=== PATIENT | female | born 1975 | race Caucasian/White ===

== ENCOUNTER 2016-10-01 07:54 | Emergency (ER) | payer OTHER ==
[~2016-10-01] VITALS: Ht 149.9 cm; Wt 72.6 kg
[~2016-10-01 07:54] MED LIST: ALBUTEROL0.09 MG/A1 INH; AMOXIL 875 MG875 MG PO; AMOXIL500 MG PO; CIPRO250 M1 PO; EXCEDRIN MIGRAI1 TAB; FLOMAX(MONOGRA0.4 MG PO; FLUOXETINE HCL10 M2 PO; IMITREX20 MG NAS; MOBIC15 M1 PO; MOTRIN 600 MG600 MG PO; PERCOCET 325 MG1 TA2 PO; PREDNISONE 20MG20 MG PO; PRILOSEC OTC20 M1 PO; PRILOSEC40 MG PO; TESSALON PERLE100 MG PO; TORADOL10 MG PO; TRAMADOL HCL50 MG PO; VITAMIN D50000 IU PO; XANAX0.5 MG PO; XODOL PO; ZOFRAN ODT4 M1 SL; ZOFRAN4 M1 PO
[2016-10-01 07:58] VITALS: BP 177/110
--- NOTE | 2016-10-01 08:07 | ED GI/GU/ABDOMINAL COMPLAINT ---
History of Present Illness General Chief Complaint: Abdominal Pain/Flank Pain Stated Complaint: R LOWER ABD PAIN Source: patient Exam Limitations: no limitations Vital Signs & Intake/Output Vital Signs & Intake/Output Vital Signs Date Time Temp Pulse Resp B/P Pulse O2 O2 Flow FiO2 Ox Delivery Rate 10/01 0758 97.2 96 20 177/110 96 Room Air Allergies Coded Allergies: nut - unspecified (Severe, ANAPHYLAXIS 04/12/16) bacitracin (Intermediate, RASH 04/12/16) hydrocodone (From Vicodin) (Intermediate, HIVES 04/12/16) meperidine (Intermediate, RASH 04/12/16) morphine (Intermediate, RASH 04/12/16) venom-honey bee (bee venom (honey bee)) (Intermediate, HIVES, SWELLING 04/12/16) MDX - Fruits (FRUITS) (PRIMARILY FRUIT PITS; MOUTH AND THROAT ITCH 10/17/15) Reconcile Medications Alprazolam (Xanax) 0.5 MG TAB 1 TAB PO AT BEDTIME SLEEP (Reported) Fluoxetine HCl 10 MG CAPSULE 1 CAP PO DAILY PMS (Reported) Pantoprazole Sodium (Protonix) 40 MG TABLET.DR 1 TAB PO DAILY GERD Sucralfate (Carafate) 1 GRAM/10 ML ORAL.SUSP 10 ML PO 4 TIMES/DAY GASTRITIS 1 hour before food and bedtime Triage Note: PT TO ED C/O RIGHT ABD PAIN. STATES WAS HERE 2 MONTHS AGO AND WAS TOLD IT WAS INDIGESTION. PAIN WORSE LAST NIGHT. HAS NOT HAD F/U CARE SINCE. C/O NAUSEA, DIARRHEA. DENIES VOMITING. STATES HER ABD IS DISTENDED. DENIES S/S. Triage Nurses Notes Reviewed? yes ? N Is pt currently ? No Duration: waxing and waning, FEW MONTHS Timing: recent history Quality/Severity: moderate Location: left upper quadrant, right upper quadrant Radiation: no radiation Activities at Onset: eating, sometimes without eating Prior Abdominal Problems: similar symptoms No Modifying Factors: none Associated Symptoms: abdominal pain, nausea/vomiting HPI: 40 year old female who presents with RUQ pain, constant, dull that started 2 months ago. Seen at that time, dx with reflux. For the last 2 months pain has been constant. Pain is worse after meals, 7/10, up to 10/10, now associated with diarrhea. Diarrhea is 3-4 times per day, dark this morning. LMP is 09/04, not currently sexually active. Last night patient had steak, fried empanadas, nachos. Past History Travel History Traveled to [place] past 21 day No Medical History Any Pertinent Medical History? 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 No Review of Systems Review of Systems Constitutional: Denies: chills, fever. EENTM: Reports: no symptoms. Respiratory: Reports: no symptoms. Cardiovascular: Denies: chest pain. GI: Reports: abdominal pain, diarrhea, nausea, vomiting. Genitourinary: Reports: no symptoms. Musculoskeletal: Reports: no symptoms. Skin: Reports: no symptoms. Neurological/Psychological: Reports: no symptoms. Hematologic/Endocrine: Denies: bruising, bleeding, polyuria, polydipsia. Immunologic/Allergic: Denies: splenectomy. All Other Systems: Reviewed and Negative Physical Exam Physical Exam General Appearance: well developed/nourished, alert, awake, anxious, mild distress Head: atraumatic, normal appearance Eyes: Bilateral: normal appearance, PERRL, EOMI. Ears, Nose, Throat, Mouth: hearing grossly normal, moist mucous membrane Neck: normal inspection, supple, full range of motion Respiratory: normal breath sounds, chest non-tender, no respiratory distress Cardiovascular: edema Peripheral Pulses: 2+ radial (R), 2+ radial (L) Gastrointestinal: soft, tenderness (RUQ, LUQ) Extremities: normal range of motion Neurologic/Psych: no motor/sensory deficits, awake, alert, oriented x 3 Skin: intact, normal color, warm/dry Core Measures ACS in differential dx? No Severe Sepsis Present: No Septic Shock Present: No Progress Differential Diagnosis: cholecystitis, SYMPTOMATIC CHOLELITHIASIS, PANCREATITIS, IBS, IBD, PANCREATITIS, GERD/PUD Plan of Care: Orders Procedure Date/time Status LACTIC ACID 10/01 1130 Active C-REACTIVE PROTEIN 10/01 0844 Complete LIPASE 01/16 0830 Complete LACTIC ACID 10/01 829 Complete COMPREHENSIVE METABOLIC PANEL 10/01 829 Complete CBC WITHOUT DIFFERENTIAL 10/01 829 Complete URINE 10/01 756 Complete URINALYSIS 10/01 756 Complete Laboratory Tests 10/01/16 0845: C-Reactive Prot, Quant Cancelled 10/01/16 0844: Anion Gap 10, Estimated GFR > 60, BUN/Creatinine Ratio 13.8, Glucose 95, Lactic Acid 1.1, Calcium 8.7, Total Bilirubin 0.3, AST 20, ALT 23, Alkaline Phosphatase 68, C-Reactive Prot, Quant < 0.5, Total Protein 7.3, Albumin 4.2, Globulin 3.1, Albumin/Globulin Ratio 1.4, Lipase 114, CBC w Diff NO MAN DIFF REQ, RBC 4.81, MCV 86.7, MCH 29.6, RDW 12.2, MPV 8.1, Gran % 63.4, Lymphocytes % 24.6, Monocytes % 6.9, Eosinophils % 4.4, Basophils % 0.7, Absolute Granulocytes 3.8, Absolute Lymphocytes 1.5, Absolute Monocytes 0.4, Absolute Eosinophils 0.3, Absolute Basophils 0, PUBS MCHC 34.2 10/01/16 0838: Urine Color YEL, Urine Clarity CLEAR, Urine pH 6.0, Ur Specific [place] >= 1.030 , Urine Protein NEG, Urine Ketones NEG, Urine Nitrite NEG, Urine Bilirubin NEG, Urine Urobilinogen 0.2, Ur Leukocyte Esterase NEG, Ur Microscopic SEDIMENT EXAMINED, Urine RBC 10-15 H, Urine WBC RARE, Ur Epithelial Cells MANY H, Urine Mucus RARE, Urine Hemoglobin MOD H, Urine Glucose NEG, Urine Test NEGATIVE 9:37 AM U/S PENIDNG. IV TORADOL GIVEN FOR PAIN. (NIDIA HANSNE,SHRUTHI) Diagnostic Imaging: Viewed by Me: Ultrasound. Discussed w/RAD: Ultrasound. Initial ED EKG: none Comments: PATIENT: EDDY RENTERIA PRESENT AGE: 40 PATIENT ACCOUNT NO: [id number] : 75 LOCATION: [facility] ORDERING PHYSICIAN: SHRUTHI JACOB MD SERVICE DATE: 10/01/16 EXAM TYPE: US - US-LIMITED ABDOMEN EXAMINATION: US ABDOMEN LIMITED CLINICAL INFORMATION: Right upper quadrant pain after meals. Rule out cholecystitis. COMPARISON: None TECHNIQUE: Real-time imaging of the right upper quadrant abdominal viscera. FINDINGS: PANCREAS: The visualized head and body of the pancreas appears unremarkable. Remainder of the pancreas is obscured by bowel gas. LIVER: Normal. The liver demonstrates normal size, contour and echogenicity. No focal lesion or intrahepatic biliary duct dilatation. GALLBLADDER: Normal. The gallbladder is physiologically distended without evidence of stones, sludge, polyps, wall thickening or pericholecystic fluid. COMMON BILE DUCT: Normal in caliber measuring 0.4 cm in diameter. RIGHT KIDNEY: Normal. No hydronephrosis. There is a 3 mm echogenic focus probably reflecting a nonobstructing calculus. No focal parenchymal lesions. The kidney measures 11.4 cm in maximum dimension. FREE FLUID: None. IMPRESSION: 1. No evidence of cholelithiasis. 2. Right renal 3 mm nonobstructing calculus. 3. Partially visualized pancreas. 4. No acute findings otherwise. DICTATED BY: LANCE MIRANDA MD DATE/TIME DICTATED:10/01/16947 TURKEY FARMER:ELIOT DATE/TIME TRANSCRIBED:10/01/16947 CONFIDENTIAL, DO NOT COPY WITHOUT APPROPRIATE AUTHORIZATION. <Electronically signed in Other Vendor System> SIGNED BY: LANCE MIRANDA MD 0959 Departure Departure Time of Disposition: 1006 Disposition: HOME OR SELF CARE Condition: Stable Clinical Impression Primary Impression: Abdominal pain Referrals: GLEN MAY MD (PCP/Family) Additional Instructions: Follow up with your outpatient HIDA scan and with GI. Take the medications as prescribed. They are at your pharmacy. Return to the ER for worsening symptoms , fever, vomiting. Departure Forms: Customer Survey General Discharge Information Prescriptions: Current Visit Scripts Pantoprazole Sodium (Protonix) 1 TAB PO DAILY #14 TAB Sucralfate (Carafate) 10 ML PO 4 TIMES/DAY #1200 ML 1 hour before food and bedtime
[2016-10-01 08:56] LABS: ABSOLUTE BASOPHIL COUNT 0 /CUMM (0.0-0.2); ABSOLUTE EOSINOPHIL COUNT 0.3 /CUMM (0.0-0.7); ABSOLUTE GRANULOCYTE CT 3.8 /CUMM (1.4-6.5); ABSOLUTE LYMPH COUNT 1.5 /CUMM (1.2-3.4); ABSOLUTE MONOCYTE COUNT 0.4 /CUMM (0.10-0.60); BASOPHIL % 0.7 % (0.0-2.0); EOSINOPHIL % 4.4 % (0-5); GRANULOCYTE % 63.4 % (42.2-75.2); HEMATOCRIT 41.7 % (37-47); MEAN CORPUSCULAR HGB 29.6 PG (27.0-31.0); MEAN CORPUSCULAR HGB CONC 34.2 G/DL (33.0-37.0); MEAN CORPUSCULAR VOLUME 86.7 FL (81.0-99.0); MEAN PLATELET VOLUME 8.1 FL (7.4-10.4); PLATELET COUNT 235 /CUMM (130-400); RBC DISTRIBUTION WIDTH 12.2 % (11.5-14.5); RED BLOOD CELL CT 4.81 /CUMM (4.20-5.40)
--- NOTE | 2016-10-01 09:59 | ULTRASOUND REPORT ---
EXAMINATION: US ABDOMEN LIMITED CLINICAL INFORMATION: Right upper quadrant pain after meals. Rule out cholecystitis. COMPARISON: None TECHNIQUE: Real-time imaging of the right upper quadrant abdominal viscera. FINDINGS: PANCREAS: The visualized head and body of the pancreas appears unremarkable. Remainder of the pancreas is obscured by bowel gas. LIVER: Normal. The liver demonstrates normal size, contour and echogenicity. No focal lesion or intrahepatic biliary duct dilatation. GALLBLADDER: Normal. The gallbladder is physiologically distended without evidence of stones, sludge, polyps, wall thickening or pericholecystic fluid. COMMON BILE DUCT: Normal in caliber measuring 0.4 cm in diameter. RIGHT KIDNEY: Normal. No hydronephrosis. There is a 3 mm echogenic focus probably reflecting a nonobstructing calculus. No focal parenchymal lesions. The kidney measures 11.4 cm in maximum dimension. FREE FLUID: None. IMPRESSION: 1. No evidence of cholelithiasis. 2. Right renal 3 mm nonobstructing calculus. 3. Partially visualized pancreas. 4. No acute findings otherwise.
[2016-10-01] MEDS ORDERED: CARAFATE1 GM/10 M1 PO (10:07)
[2016-10-01] MEDS ORDERED: PROTONIX40 M3 PO (10:07)
== END 2016-10-01 10:31 ==
LOC: ERH 07:54
PROVIDERS: Emergency Medicine
DX: R10.11 Right upper quadrant pain (principal)
CPT/HCPCS: 78227; 81001; 81025; 96374; A9537; J1885

== ENCOUNTER 2018-02-07 18:30 | Emergency (ER) | payer OTHER ==
[~2018-02-07] VITALS: Ht 149.9 cm; Wt 73.5 kg
[~2018-02-07 18:30] MED LIST changes: +CARAFATE1 GM/10 M1 PO; +PROTONIX40 M3 PO; +XANAX0.5 M1 PO; -XANAX0.5 MG PO
[2018-02-07 18:42] VITALS: BP 146/95
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
== END 2018-02-07 20:10 ==
LOC: ERH 18:30
DX: S16.1XXA Strain of muscle, fascia and tendon at neck level, initial encounter (principal); S39.012A Strain of muscle, fascia and tendon of lower back, initial encounter; S63.501A Unspecified sprain of right wrist, initial encounter; V43.53XA Car driver injured in collision with pick-up truck in traffic accident, initial encounter; Y92.410 Unspecified street and highway as the place of occurrence of the external cause
CPT/HCPCS: 72050; 72100; 73110-RT

== ENCOUNTER 2018-05-01 12:20 | Emergency (ER) | payer OTHER ==
[~2018-05-01] VITALS: Ht 160 cm; Wt 73.5 kg
[2018-05-01 13:16] LABS: ABSOLUTE BASOPHIL COUNT 0 /CUMM (0.0-0.2); ABSOLUTE EOSINOPHIL COUNT 0.2 /CUMM (0.0-0.7); ABSOLUTE GRANULOCYTE CT 5.9 /CUMM (1.4-6.5); ABSOLUTE LYMPH COUNT 2.1 /CUMM (1.2-3.4); ABSOLUTE MONOCYTE COUNT 0.5 /CUMM (0.10-0.60); BASOPHIL % 0.3 % (0.0-2.0); EOSINOPHIL % 1.9 % (0-5); GRANULOCYTE % 68.3 % (42.2-75.2); MEAN CORPUSCULAR HGB CONC 34.1 G/DL (33.0-37.0); MEAN CORPUSCULAR VOLUME 88.1 FL (81.0-99.0); MEAN PLATELET VOLUME 8.5 FL (7.4-10.4); PLATELET COUNT 247 /CUMM (130-400); RBC DISTRIBUTION WIDTH 12.6 % (11.5-14.5); RED BLOOD CELL CT 4.77 /CUMM (4.20-5.40); WHITE BLOOD CELL COUNT 8.7 /CUMM (4.8-10.8)
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
[2018-05-01] MEDS ORDERED: TRAMADOL HCL50 M1 PO (14:36)
--- NOTE | 2018-05-01 16:19 | CT SCAN REPORT ---
EXAMINATION: CT ABDOMEN AND PELVIS WITH CONTRAST CLINICAL INFORMATION: Diffuse abdominal pain. Presumptive diagnosis of perforated viscus. COMPARISON: CT scan of the abdomen and pelvis dated 06/18/2016, 11/03/2012. CT scan of the chest dated 11/21/2013. TECHNIQUE: Multidetector CT volumetric acquisition of the abdomen and pelvis was performed after the administration of 95 mL of intravenous Optiray 320. The data set was reformatted in the sagittal and coronal planes and reviewed on an independent workstation. DLP: 355.25 mGy-cm. FINDINGS: LOWER CHEST: There is a solid noncalcified 3 mm nodule in the right lower lobe (series 2, image 2), unchanged dating back to 12/01/2013, consistent with a benign finding, such as an incidental small granuloma. Included lung bases are otherwise unremarkable. LIVER, GALLBLADDER, BILIARY TREE: Liver normal size and attenuation. No focal cystic or solid mass or intra-or extrahepatic ductal dilatation. Hepatic and portal veins patent. Gallbladder partially distended and within normal limits. PANCREAS: Normal. No ductal dilatation, mass, or surrounding stranding. SPLEEN: Normal size and appearance. Splenic vein patent. ADRENAL GLANDS AND KIDNEYS: Adrenal glands normal. Kidneys bilaterally symmetric in size and function. No focal mass, hydronephrosis, or perinephric stranding. Punctate nonobstructing mid right renal calcification again seen, unchanged (series 602, image 54). No other definite renal calculi are seen. URETERS AND BLADDER: Ureters decompressed and within normal limits. Bladder well distended and within normal limits. PELVIC ORGANS: Uterus anteverted and unremarkable. Peripherally rim enhancing 2 cm mass in the left ovary is seen, most consistent with a physiologic finding, such as a corpus luteum cyst. Ovaries bilaterally otherwise unremarkable. GASTROINTESTINAL TRACT: There is some fullness at the GE junction, suggestive of a small hiatal hernia. Small and large bowel loops decompressed. Only the stump of the appendix is seen with adjacent surgical staple, suggesting prior appendectomy. LYMPHOVASCULAR STRUCTURES: Abdominal aorta normal in caliber. No periaortic collections. No abdominal or pelvic adenopathy or free fluid collection. BONES: Unremarkable. IMPRESSION: 1. The abdominal bowel loops are decompressed and unremarkable. No evidence of bowel obstruction or perforation is seen. 2. Small peripherally rim-enhancing cyst in the left ovary, likely a physiologic finding, such as a corpus luteum cyst. No other acute intra-abdominal or pelvic process is seen. 3. No change in punctate nonobstructing mid right renal calcification. Other previously described left renal calculi are not appreciated on this exam. 4. Probable small hiatal hernia. 5. Stable small noncalcified nodule in the right lower lobe dating back to 12/01/2013, consistent with a benign finding, such as a noncalcified granuloma.
[2018-05-01] MEDS ORDERED: ZOFRAN ODT4 M1 SL (19:33)
[2018-05-01] MEDS ORDERED: LEVSIN0.125 M1 PO (19:33)
[2018-05-01] MEDS ORDERED: PROTONIX20 M1 PO (19:33)
[2018-05-01 20:03] VITALS: BP 131/61
== END 2018-05-01 20:16 ==
LOC: ERH 12:20
PROVIDERS: Physician Assistant
DX: R11.2 Nausea with vomiting, unspecified (principal); R10.13 Epigastric pain; R10.11 Right upper quadrant pain; R10.12 Left upper quadrant pain
CPT/HCPCS: 74177; 81001; 81025; 96361; 96374; 96375; 96376; J0131; J2405